=== PATIENT | male | born 1950 | race Caucasian/White ===

== ENCOUNTER 2016-09-29 07:41 | Day surgery (SDC) | payer BC ==
[2016-09-25 10:18] LABS: BASOPHILS 0.7 %; BASOPHILS ABSOLUTE 0.05 10/3/uL (0.0-0.16); EOSINOPHILS 1.2 %; EOSINOPHILS ABSOLUTE 0.08 10/3/uL (0.0-0.53); HEMATOCRIT 42.3 % (40.0-51.0); HEMOGLOBIN 14.8 g/dL (13.6-17.8); IMMATURE GRANULOCYTES 0.3 %; IMMATURE GRANULOCYTES ABSOLUTE 0.02 10/3/uL (0.0-0.11); LYMPHOCYTES 30.1 %; LYMPHOCYTES ABSOLUTE 2.09 10/3/uL (0.67-4.30); MEAN CORPUSCULAR HEMOGLOB 32.2 pg (26.0-34.0); MEAN CORPUSCULAR VOLUME 92.2 fL (80-100); MEAN PLATELET VOLUME 10.3 fL (9.2-13.0); MONOCYTES 9.1 %; MONOCYTES ABSOLUTE 0.63 10/3/uL (0.21-1.20); NEUTROPHILS 58.6 %; NEUTROPHILS ABSOLUTE 4.08 10/3/uL (2.02-8.40); PLATELET COUNT 234 10/3/uL (150-400); RBC DISTRIBUTION WIDTH 12.1 % (12.0-16.0); RED CELL COUNT 4.59 10/6/uL (4.7-6.1)
[2016-09-25 10:25] LABS: MANUAL DIFF NO %
[2016-09-25 10:32] LABS: CALCIUM, SERUM 8.9 MG/DL (8.5-10.4); CHLORIDE, SERUM 104 MMOL/L (96-112); CO2 (CARBON DIOXIDE) 29 MMOL/L (24-34); CREATININE 1.13 MG/DL (0.70-1.30); GFR AFRICAN AMERICAN 79 ML/MIN (>=60); GFR NON AFRICAN AMERICAN 68 ML/MIN (>=60); GLUCOSE, SERUM 100 MG/DL (60-99); POTASSIUM, SERUM 4.6 MMOL/L (3.5-5.3); SODIUM, SERUM 141 MMOL/L (135-148)
[2016-09-25 10:33] LABS: BUN (BLOOD UREA NITROGEN) 11 MG/DL (6-23)
[2016-09-25 10:42] LABS: PFA (COL/EPI) 108 SEC (72-180)
[2016-09-25 11:23] LABS: ASCORBIC ACID (UR NOT ORDER) NEG (NEG); BILIRUBIN, URINE NEGATIVE (NEG); KETONE, URINE NEGATIVE (NEG); LEUKOCYTE ESTERASE(NOT OR NEG (NEG); WBC (NOT ORDERED) (RFLEX) < 1 (0-5)
--- NOTE | ~2016-09-29 | OP ---
Record Of Operation [facility] [address] [place]. [address] NAME: NOEMI CA : 52 STATUS : REG [facility]#: [id number] AGE: 66 ADM/REG DATE : 09/29/16 MR#: [id number] REPORT SERV DATE: 09/29/16 DICTATED BY: DAVIDE EL DATE: 09/29/16 REPORT STATUS : Draft TRANSCRIBED BY: MODL DATE: 09/29/16 DATE OF PROCEDURE: 09/29/2016 PREOPERATIVE DIAGNOSIS: Left ureteral and renal stones, Duplex left collecting system. POSTOPERATIVE DIAGNOSIS: Left ureteral and renal stones Duplex left collecting system. PROCEDURES: 1. Cystoscopy. 2. Left retrograde pyelogram of the upper pole renal moiety and the lower pole renal moiety ureters. 3. Dilation of the left upper pole ureteral orifice and the left lower pole ureteral orifice. 4. Rigid ureteroscopy of the left lower pole moiety ureter. 5. Flexible ureteroscopy of the upper pole moiety ureter of the left kidney and the lower pole moiety ureter of the left kidney. 6. Laser ablation of the left upper pole moiety ureteral stone and the left upper pole moiety renal stone. 7. Placement of a left upper pole moiety ureteral stent and a left lower pole moiety ureteral stent. 8. Barragan catheter placement. SURGEON: Davide El M.D. ANESTHESIA: General. SPECIMENS: None. ESTIMATED BLOOD LOSS: Minimal. COMPLICATIONS: None. DRAINS: Left upper pole moiety ureteral stent is a six variable-length double-J contour stent without a string. Left lower pole moiety ureteral stent is a six variable-length double-J contour ureteral stent without a string. DISPOSITION: Extubated to recovery room in good condition. COMPLICATIONS: None. HISTORY: This is a 66-year-old gentleman, who presented to me with a ureteral stone in his midureter and an upper pole renal stone. 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 We treated his ureteral stone twice with lithotripsy. His stone did break into pieces, but he could not pass the pieces. He has agreed to undergo the above-stated procedure. Risks and benefits have been explained in detail to the patient and that is documented in his office chart. Record Of Operation [facility] [id number] [place]. [address] NAME: NOEMI CA SHELBY : 52 STATUS : REG [facility] PAT#: [id number] AGE: 66 ADM/REG DATE : 09/29/16 MR#: [id number] REPORT SERV DATE: 09/29/16 DICTATED BY: DAVIDE EL DATE: 09/29/16 REPORT STATUS : Draft TRANSCRIBED BY: THERESA DATE: 09/29/16 PROCEDURE IN DETAIL: After consent was obtained, the patient was taken to the operating room and placed on the operative table in a supine position. General anesthetic was induced. The patient was then placed in dorsal lithotomy position. His perineum was prepped and draped in the usual sterile fashion. Examination under anesthesia reveals normal external genitalia. [employer] film on the table does not specifically show his stones due to bowel gas contents. Cystourethroscopy was performed with a 30-degree and 70-degree lens, both ureteral orifices were seen with clear efflux bilaterally. There was no evidence of any tumor, stones, or foreign bodies seen in the bladder. He had one left ureteral orifice noted. A left retrograde pyelogram was performed. This showed a splitting of his left ureter very near his left ureteral orifice and the bladder. His left ureter was very small in caliber and there was no evidence of any hydroureteronephrosis. His left upper pole moiety was small, and most of his calices were connected to the lower pole moiety. We then passed a wire into the ureteral orifice and it passed up the upper pole moiety ureter 1st. The scope was backed out of the bladder and this wire was clamped to the patient's right side of the drapes, and a note was placed on the board in the operating room that the upper pole moiety ureter wire was clamped to the right side of the drapes. At that time, we re- scoped the patient and a wire was introduced into the ureter opening again on the left. With some manipulation, we were able to pass a second wire up the lower pole moiety ureter into the lower pole. An open-ended was passed over that wire into the region of the lower pole. The wire was removed and a retrograde pyelogram was performed showing that we were in the lower pole system. The wire was replaced and the open-ended was removed. A #15 10-cm balloon dilator was passed into the ureteral orifice at the lower pole system. This was then dilated. The balloon dilator was then removed. The bladder was drained. The scope and sheath were removed. The safety wire was left in place and clamped to the drapes. Rigid ureteroscopy was then performed of the lower pole ureter up to the renal pelvis. No stones were noted. At that time, the rigid ureteroscope was backed down the ureter. A retrograde pyelogram performed and showed the collecting system was intact. However, there was irritation from dilating this small ureter. A Riki catheter was used to pass a second wire into the kidney. The safety wire was clamped back to the drapes. A 9.5 cm Access sheath was then passed over the working wire up to the proximal ureter. The flexible ureteroscope was passed over the working wire into the kidney. A retrograde pyelogram was performed and all of the lower pole calices were evaluated. No stone fragments were noted. No stones were seen. No other abnormalities were noted in the lower pole calices. We backed down the ureter. No ureteral abnormalities were noted either. A retrograde pyelogram was once again performed showing that the collecting system was intact. At that time, we backed the upper-pole moiety safety wire through the cystoscope. The balloon was used to dilate the distal upper pole moiety ureteral orifice. The bladder was drained. The scope and sheath were removed. The Riki catheter was used to pass a second wire into the kidney. The safety wire was clamped to the drapes. Ureteral access sheath was passed over the working wire to the proximal ureter. The flexible ureteroscope was passed over the working wire up to the proximal ureter. It would not advance further. Under visual guidance, we could see that we were at the region of the proximal stone. The working wire was removed and the laser was placed. There was approximately a 3 mm fragment in the space. The laser was used to fragment a portion, it floated up into the kidney and settled in the one open calyx portion of the upper pole with the upper pole stone. The laser was then used Record Of Operation [address] [place]. [address] NAME: NOEMI CA : 52 STATUS : REG [facility] PAT#: [id number] AGE: 66 ADM/REG DATE : 09/29/16 MR#: [id number] REPORT SERV DATE: 09/29/16 DICTATED BY: DAVIDE EL DATE: 09/29/16 REPORT STATUS : Draft TRANSCRIBED BY: MODL DATE: 09/29/16 to break the stones up into small pieces of sand. We already encountered several small pieces of sand in the ureter from his previous lithotripsy. Once all the stone fragments were in small pieces of sand, laser was removed and the calices were flushed and irrigated. There were several small fragments that had buried into the blackburn of the calyx, these were of very small nature. We then backed down the ureter slowly and saw several yahir pieces but nothing of any caliber. A retrograde pyelogram was performed showing a very angry-appearing ureter, also the ureteroscopy showed the upper pole ureter was much more irritated from the passing of the wires and sheaths. No wilmer other abnormalities were noted. The safety wire at the upper pole moiety was passed through the cystoscope. The bladder was drained. The 1st stent was passed into the upper pole moiety with a good curl seen in the kidney and in the bladder. It was seen to be draining. We then backed the safety wire for the lower pole moiety through the cystoscope. The 2nd stent was then passed into the lower pole moiety with a good curl seen in the lower pole of the kidney and in the bladder. It was also seen to be draining. The patient had a very irritated bladder neck after the passage of all of the scopes and wires, and it was oozing. It was decided at that time to place a catheter just until he had reached phase 2. We then left the bladder full. The scope and sheath were removed. A 24-Khmer catheter was then passed into the bladder and the balloon was inflated with 20 mL of sterile water. Once it initially drained, the drainage was clear. This was placed to bag drainage. The patient was awakened and taken to recovery room in good condition. POSTOPERATIVE PLAN: The plan will be to send him home with Percocet 10s #30, ondansetron #12 with a refill, levofloxacin #5 to start tomorrow, phenazopyridine #30, and oxybutynin ER 10 mg #14 to use as needed. He was instructed to drink only water 2-3 L a day while the stents were in place. He may use a heating pad on his lower abdomen. He is to take great care not to become constipated while the stents are in place. He is to return in two weeks for a KUB and cystoscopy stent removal. HEIDI/THERESA Davide El M.D. / [id number] CC: Davide El M.D. [facility] [place]
[~2016-09-29 07:41] MED LIST: COREG3 PO; FLOMAX4 PO; MULTIVIT/MIN; NEUR300 PO; NORV10 PO; NORV5 PO; PRILO PO; VASOTEC5 PO
== END 2016-09-29 20:38 | disposition home or self-care (01) ==
LOC: SDC 07:41
PROVIDERS: Urology
PROC: 0TF78ZZ Fragmentation in Left Ureter, Via Natural or Artificial Opening Endoscopic (ICD-10-PCS; principal; 2016-09-29 09:30)
PROC: 0T778DZ Dilation of Left Ureter with Intraluminal Device, Via Natural or Artificial Opening Endoscopic (ICD-10-PCS; 2016-09-29 09:30)
DX: N20.2 Calculus of kidney with calculus of ureter (principal); I10 Essential (primary) hypertension; G47.33 Obstructive sleep apnea (adult) (pediatric); G43.909 Migraine, unspecified, not intractable, without status migrainosus; K21.9 Gastro-esophageal reflux disease without esophagitis; Z99.81 Dependence on supplemental oxygen; Z87.442 Personal history of urinary calculi; Z87.891 Personal history of nicotine dependence; Z90.49 Acquired absence of other specified parts of digestive tract; Z98.890 Other specified postprocedural states
CPT/HCPCS: 74420; 80048; 81001; 85025; 85576; 93005; A9270-GY; C1726; C1758; C1769; C1892; C1894; C2617; J2250; J2405; J2550; J2710; J3010; Q9967